=== PATIENT | male | born 1950 | race Asian ===

== ENCOUNTER 2016-08-17 02:30 | Inpatient (IN) | payer BC, OTHER ==
[~2016-08-17] VITALS: Ht 182.9 cm; Wt 83.3 kg
--- NOTE | ~2016-08-17 | EKG ---
[address] [place] [address] ELECTROCARDIOGRAM REPORT Name: MARYYOVANIJULIANASTACIE Room #: 418-P ADM IN M.R.#: [id number] Admission: 08/17/16 Attend Phys: Leonid Madrid MD Discharge: Date of : 54 Report #: [id number] THIS REPORT FOR: //name// [facility] ED Test Date: 2016-08-17 Test Time: 02:54:12 Pat Name: STACIE THORPE Department: Room: [facility] Gender: M Plate Straightener: [id number] : 1950 Requested By: Joleen Mccain Order Number: [id number] MD: Leif Ricardo Measurements Intervals [place] Rate: 58 P: 57 DE: 198 QRS: 17 QRSD: 97 T: 19 QT: 477 QTc: 469 Interpretive Statements Sinus rhythm Probable left atrial enlargement Left ventricular hypertrophy Repolarization abnormality No previous ECG available for comparison Electronically Signed On 08-17-2016 9:28:09 CDT by Leif Ricardo [email or web address] <ELECTRONICALLY SIGNED> By: Leif Ricardo MD, [facility] 08/17/16 0928 0254 3 Leif Ricardo MD, FAC /EPI
[2016-08-17 02:32] VITALS: BP 152/97
[2016-08-17] MEDS ORDERED: NORVASC5 MG PO ×2 (02:37→02:50)
[2016-08-17 02:46] LABS: URINE BILIRUBIN NEGATIVE (Negative); URINE BLOOD NEGATIVE (Negative); URINE COLOR YELLOW; URINE GLUCOSE-RANDOM* NEGATIVE (Negative); URINE KETONES 2+ (Negative); URINE NITRITE NEGATIVE (Negative); URINE PROTEIN (DIPSTICK) 1+ (Negative); URINE UROBILINOGEN 0.2 E.U./dl (0.2-1.0)
[2016-08-17 03:04] LABS: SQUAMOUS 4-10 Moderate /LPF (0-3)
[2016-08-17 03:05] LABS: AMORPHOUS PHOSPHATES Few /LPF (None Seen); URINE WBC 0-5 Rare /HPF (0-5)
[2016-08-17 03:06] LABS: CASTS None Seen /LPF (None Seen); URINE RBC 0-2 Rare /HPF (0-2)
[2016-08-17 03:15] LABS: ABSOLUTE NEUTROPHILS 11.9 thou/uL (1.4-8.2); BASOPHILS 0.5 % (0.0-2.0); EOSINOPHILS 0.3 % (0.0-3.0); HEMATOCRIT 45.1 % (42.0-52.0); HEMOGLOBIN 15.6 gm/dL (14.0-18.0); LYMPHOCYTES 15.5 % (24.0-44.0); MCH 32.4 pg (26.0-34.0); MCHC 34.7 g/dL (28.0-37.0); MCV 93.3 fL (80.0-100.0); MONOCYTES 3.3 % (1.0-8.0); PLATELET COUNT 217 thou/uL (150-400); POLYS 80.4 % (36.0-66.0); RBC 4.83 mil/uL (4.50-6.00); WBC 14.9 thou/uL (4.0-11.0)
[2016-08-17 03:18] LABS: MANUAL DIFF NO
[2016-08-17 03:24] LABS: ANION GAP 10 mmol/L (7-16); BUN 17 mg/dL (7-18); CALCIUM 9.7 mg/dL (8.5-10.1); CHLORIDE 104 mmol/L (98-107); CO2 28 mmol/L (21-32); GLUCOSE 155 mg/dL (74-106); POTASSIUM 3.8 mmol/L (3.5-5.1); SODIUM 142 mmol/L (136-145)
[2016-08-17 03:31] LABS: ALBUMIN 4.4 g/dL (3.4-5.0); ALKALINE PHOSPHATASE 68 U/L (46-116); DIRECT BILIRUBIN 0.2 mg/dL (<0.1-0.3); SGOT 17 U/L (15-37); SGPT 17 U/L (30-65); TOTAL PROTEIN 8.3 g/dL (6.4-8.2); TROPONIN-I < 0.04 ng/mL (<0.04-0.07)
[2016-08-17 05:34] VITALS: BP 121/73
[2016-08-17 06:30] VITALS: BP 120/65
[2016-08-17 15:18] VITALS: BP 115/75
[2016-08-17 15:26] VITALS: BP 154/86
[2016-08-17 20:35] VITALS: BP 125/78
[2016-08-18 07:25] LABS: ABSOLUTE NEUTROPHILS 5.4 thou/uL (1.4-8.2); BASOPHILS 0.5 % (0.0-2.0); LYMPHOCYTES 30.2 % (24.0-44.0); MCH 32.5 pg (26.0-34.0); MCHC 33.7 g/dL (28.0-37.0); MCV 96.5 fL (80.0-100.0); PLATELET COUNT 169 thou/uL (150-400); POLYS 61.3 % (36.0-66.0); RBC 4.14 mil/uL (4.50-6.00); RDW 13.4 % (10.5-14.5); WBC 8.8 thou/uL (4.0-11.0)
[2016-08-18 07:32] LABS: MANUAL DIFF NO
[2016-08-18 07:34] LABS: HEMOGLOBIN 13.5 gm/dL (14.0-18.0)
[2016-08-18 07:40] VITALS: BP 135/85
[2016-08-18 07:47] LABS: CALCIUM 8.4 mg/dL (8.5-10.1); CREATININE 1.1 mg/dL (0.7-1.3); MAGNESIUM 1.8 mg/dL (1.8-2.4); PHOSPHORUS 3.6 mg/dL (2.5-4.9); POTASSIUM 3.9 mmol/L (3.5-5.1)
[2016-08-18 17:00] VITALS: BP 144/84
[2016-08-18 20:00] VITALS: BP 140/80
[2016-08-19 04:04] VITALS: BP 124/80
[2016-08-19 16:43] VITALS: BP 142/85
[2016-08-20] MEDS ORDERED: FLAGYL500 MG PO (08:44)
[2016-08-20] MEDS ORDERED: CIPRO500 MG PO (08:44)
== END 2016-08-19 19:06 | disposition home or self-care (01) | DRG 872 ==
LOC: ER 02:30 → 4E 04:20 → EROBS 04:43 → 4E 06:22 → 4S 08-19 12:10
PROVIDERS: Emergency Medicine; Nurse Practitioner Family; Otolaryngology
PROC: 0D9670Z Drainage of Stomach with Drainage Device, Via Natural or Artificial Opening (ICD-10-PCS; principal; 2016-08-17)
DX: A41.9 Sepsis, unspecified organism (principal); K57.32 Diverticulitis of large intestine without perforation or abscess without bleeding; K56.60 Unspecified intestinal obstruction; K59.00 Constipation, unspecified; I10 Essential (primary) hypertension; Z79.899 Other long term (current) drug therapy
CPT/HCPCS: 10183